=== PATIENT | male | born 1980 | race Caucasian/White ===

== ENCOUNTER 2018-11-02 20:07 | Emergency (ER) | payer MEDICAID, OTHER ==
[2018-11-02 20:22] VITALS: BP 151/84
[2018-11-02] MEDS ORDERED: Ketorolac 60 MG/2 ML SDV IM ONE (20:28)
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
--- NOTE | 2018-11-02 21:58 | CR ---
INDICATION: Fall. TECHNIQUE: Three views of the left shoulder. COMPARISON: None. IMPRESSION: No fracture. No glenohumeral joint subluxation or dislocation. The acromioclavicular joint is normally aligned. Dictated by Winston Bowers MD @ 11/02/2018 9:56:08 PM Dictated by: Winston Bowers MD @ 11/02/2018 21:56:21 (Electronically Signed)
--- NOTE | 2018-11-02 22:00 | CR ---
INDICATION: Fall TECHNIQUE: Chest and left ribs 3 views. COMPARISON: None available FINDINGS: The heart is normal in size. The lungs are clear. Detailed oblique images of the left ribs demonstrate no fractures or bone lesions. IMPRESSION: Unremarkable chest and left ribs. Dictated by Amalia Gill MD @ 11/02/2018 9:58:44 PM Dictated by: Amalia Gill MD @ 11/02/2018 21:58:53 (Electronically Signed)
== END 2018-11-02 22:00 | disposition home or self-care (01) ==
LOC: MW.ED 20:07
DX: S49.92XA Unspecified injury of left shoulder and upper arm, initial encounter (principal); S29.9XXA Unspecified injury of thorax, initial encounter; F17.210 Nicotine dependence, cigarettes, uncomplicated; Z88.8 Allergy status to other drugs, medicaments and biological substances; W19.XXXA Unspecified fall, initial encounter
CPT/HCPCS: 71101; 73030; 96372; 99283; J1885

== ENCOUNTER 2021-02-01 22:03 | Emergency (ER) | payer SELFPAY ==
[2021-02-01 23:06] VITALS: BP 142/79; PULSE 79
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
== END 2021-02-01 23:22 ==
LOC: MW.ED 22:03
DX: Z02.89 Encounter for other administrative examinations (principal); Z88.5 Allergy status to narcotic agent
CPT/HCPCS: 99283

== ENCOUNTER 2022-02-20 10:57 | Emergency (ER) | payer SELFPAY ==
[2022-02-20 13:24] VITALS: BP 119/66; PULSE 87
[2022-02-20] MEDS ORDERED: Lidocaine 1% 5 ML VIAL INJECT ONE (13:45)
== END 2022-02-20 14:33 | disposition home or self-care (01) ==
LOC: MW.ED 10:57
DX: S90.552A Superficial foreign body, left ankle, initial encounter (principal); Z88.5 Allergy status to narcotic agent; Z79.899 Other long term (current) drug therapy; W26.0XXA Contact with knife, initial encounter
CPT/HCPCS: 10120; 73600-26-LT; 73600-LT; 73610-26-LT; 73610-LT; 99283

== ENCOUNTER 2022-11-30 14:59 | Emergency (ER) | payer SELFPAY ==
[2022-11-30] MEDS ORDERED: Orphenadrine 60 MG/2 ML Inj IM ONE (15:23)
[2022-11-30] MEDS ORDERED: Ketorolac 60 MG/2 ML SDV IM ONE (15:23)
[2022-11-30] MEDS ORDERED: methylPREDNISolone Sodium Succinate 125 MG/2 ML SDV IM ONE (15:33)
[2022-11-30 18:16] VITALS: BP 127/77; PULSE 97
== END 2022-11-30 18:16 | disposition home or self-care (01) ==
LOC: MW.ED 14:59
DX: S16.1XXA Strain of muscle, fascia and tendon at neck level, initial encounter (principal); Z88.5 Allergy status to narcotic agent; V89.2XXA Person injured in unspecified motor-vehicle accident, traffic, initial encounter; Y92.410 Unspecified street and highway as the place of occurrence of the external cause
CPT/HCPCS: 70450; 72125; 96372; 99284; J1885; J2930